=== PATIENT | female | born 1980 | race Caucasian/White ===

== ENCOUNTER 2016-06-28 18:06 | Emergency (ER) | payer OTHER ==
[2016-06-28 18:34] VITALS: BP 130/75; PULSE 73; RESP 20; TEMP 97.5
[2016-06-28] MEDS ORDERED: DIAZEPAM 5 MG/ML 2 ML SYRINGE IM ONE (19:00)
[2016-06-28] MEDS ORDERED: KETOROLAC 60 MG/2 ML VIAL IM STA (19:04)
[2016-06-28] MEDS ORDERED: DIAZEPAM 5 MG/ML 2 ML SYRINGE IVP STA (19:07)
--- NOTE | 2016-06-28 19:17 | ED ---
ENT HPI - General Chief complaint: Dental/Oral Stated complaint: JAW PAIN, JAW LOCKING AND SWELLING Time Seen by Provider: 06/28/16 18:51 Source: patient, RN notes reviewed Mode of arrival: ambulatory Limitations: no limitations - History of Present Illness Initial comments: Patient is a 35-year-old female presents to the emergency room for evaluation of jaw locking. Patient states that she has a history of her jaw locking up. Patient states that she follows up with ear, nose and throat specialist. Patient states she has an appointment with her ear, nose and throat specialist on Saturday. Patient states last night when she yawned her jaw "locked". Patient states she's experiencing pain over her TMJ area on the left side. Patient states she's not able to fully open her mouth. Patient states she can still move her jaw from [id number]. Patient denies any trouble breathing or swallowing. Patient states she was given Flexeril and it does not help her symptoms. Patient states that she called her primary care provider and was advised to come to the emergency room to rule out dislocation. Patient denies any fevers, chills. Patient denies any recent direct trauma to her jaw. - Related Data Home Medications Medication Instructions Recorded Confirmed levETIRAcetam [Keppra] 1,000 mg PO Q12HR 11/30/14 03/30/16 Pnv with Ca,No.72/Iron/FA 1 each PO DAILY 03/30/16 03/30/16 [ Plus Tablet] Previous Rx's Medication Instructions Recorded Diazepam [Valium] 5 mg PO BID PRN #12 tab 06/28/16 HYDROcodone/APAP 5-325MG [Bullard 1 tab PO Q6HR PRN #12 tab 06/28/16 5-325] Allergies Allergy/AdvReac Type Severity Reaction Status Date / Time No Known Allergies Allergy Verified 06/28/16 18:34 Review of Systems ROS Statement: Those systems with pertinent positive or pertinent negative responses have been documented in the HPI. ROS Other: All systems not noted in ROS Statement are negative. Past Medical History Past Medical History: Seizure Disorder Additional Past Medical History / Comment(s): migraines, last seizure 2010, abdominal pain, ovarian cyst History of Any Multi-Drug Resistant Organisms: None Reported Past Surgical History: Section Additional Past Surgical History / Comment(s): parotid tumor removed Past Anesthesia/Blood Transfusion Reactions: No Reported Reaction Past Psychological History: No Psychological Hx Reported Smoking Status: Never smoker Past Alcohol Use History: Occasional Past Drug Use History: None Reported - Past Family History Mother Family Medical History: Pulmonary Embolus General Exam - General Exam Comments Initial Comments: Sitting in exam room in no acute distress. Limitations: no limitations General appearance: alert, in no apparent distress Head exam: Present: atraumatic, normocephalic, normal inspection Eye exam: Present: normal appearance ENT exam: Present: other (Patient only able to open mouth about an inch. Patient is able to move mandible left and right. Pain on palpating over left TMJ. Muscle spasming over left TMJ.) Neck exam: Present: normal inspection Respiratory exam: Absent: respiratory distress Back exam: Present: normal inspection Neurological exam: Present: alert, oriented X3, CN II-XII intact Psychiatric exam: Present: normal affect, normal mood Skin exam: Present: warm, dry, intact, normal color. Absent: rash Course Vital Signs 06/28/16 18:31 Temperature 97.5 F L Pulse Rate 73 Respiratory 20 Rate Blood Pressure 130/75 O2 Sat by Pulse 100 Oximetry Medical Decision Making - Medical Decision Making Patient is a 35-year-old female presents to the emergency room for evaluation of left-sided jaw pain and muscle spasming. Mandibular x-ray shows no signs of dislocations. Patient is feeling better after medications given. Will send patient home with Valium and Bullard as needed and and she will follow-up with her ear, nose and throat specialist on Saturday. Patient states she understands everything that was discussed with her. Return parameters discussed. Case discussed with Dr. Mckeon. - Radiology Data Radiology results: report reviewed, image reviewed Disposition Clinical Impression: TMJ arthralgia Disposition: HOME SELF-CARE Condition: Good Instructions: Temporomandibular Disorder (ED) Additional Instructions: Apply warm compresses. Take medications as needed. Please follow up with ear, nose and throat specialist on Saturday. If any new symptom arises, symptoms worsen or fever develops, return to ER as soon as possible. Prescriptions: HYDROcodone/APAP 5-325MG [Bullard 5-325] 1 tab PO Q6HR PRN #12 tab PRN Reason: Pain Diazepam [Valium] 5 mg PO BID PRN #12 tab PRN Reason: Pain Referrals: Radha Winchester DO [Primary Care Provider] - 1-2 days Time of Disposition: 20:04
--- NOTE | 2016-06-28 19:45 | XR ---
EXAMINATION TYPE: XR mandible complete DATE OF EXAM: 06/28/2016 7:23 PM COMPARISON: NONE HISTORY: Left-sided jaw pain and swelling for 2 months, with left-sided lump TECHNIQUE: 3 views FINDINGS: Bones and joints and soft tissues are unremarkable. IMPRESSION: No acute radiographic process.
[2016-06-28] MEDS ORDERED: MORPHINE SULFATE 4 MG/ML SYRINGE IVP STA (20:11)
== END 2016-06-28 20:23 | disposition home or self-care (01) ==
LOC: EC 18:06
DX: M26.622 Arthralgia of left temporomandibular joint (principal); R25.2 Cramp and spasm; Z79.899 Other long term (current) drug therapy; G40.909 Epilepsy, unspecified, not intractable, without status epilepticus
CPT/HCPCS: 70110; 99283; 96374; 96375; J2270; J3360

== ENCOUNTER → 2016-09-27 | Outpatient (CLI) | payer OTHER ==
--- NOTE | 2016-10-02 09:28 | MM ---
Reason for exam: clinical finding. Baseline mammogram. History: Taking hormonal contraceptives for 5 months. Indicated problem(s): pain in the left breast. Physical Findings: Nurse did not find any significant physical abnormalities on exam. MG 3D Diag Mammo W/Cad JAIME Bilateral CC and MLO view(s) were taken. ML and spot compression MLO view(s) were taken of the left breast. The breast tissue is heterogeneously dense. This may lower the sensitivity of mammography. There is no discrete abnormality. Nodularity superior left breast does not persist on additional views. These results were verbally communicated with the patient and result sheet given to the patient on 09/27/16. ASSESSMENT: Negative, BI-RAD 1 RECOMMENDATION: Routine screening mammogram of both breasts at age 41. Manage on a clinical basis with regard to left breast pain.
== END | disposition home or self-care (01) ==
LOC: RADMAMWWP 09:31
PROVIDERS: ATTEND Obstetrics & Gynecology
DX: N64.4 Mastodynia (principal)
CPT/HCPCS: G0204; G0279